=== PATIENT | male | born 1955 | race African-American/Black ===

== ENCOUNTER 2017-08-04 20:53 | Emergency (ER) | payer OTHER ==
[~2017-08-04] VITALS: Ht 177.8 cm; Wt 85.5 kg
[~2017-08-04 20:53] MED LIST: EFAV1TAB4 PO; abilify; atarax; prozac
[2017-08-04 21:01] VITALS: Ht 177.8 cm; Wt 85.5 kg
[2017-08-04] MEDS ORDERED: ONDANSETRON 4 MG INJ IV STA (22:35)
[2017-08-04] MEDS ORDERED: morphine 4 MG/ML VIAL IV STA (22:35)
--- NOTE | 2017-08-04 23:00 | ERD ---
ER Documentation Chief Complaint Chief Complaint mid abd pain w/umbilical distention today HPI This is a very pleasant 61-year-old male comes in midabdominal pain with umbilical distention earlier today. 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 Patient says he knows the symptoms but they have since resolved and is passed both flatus and fecal matter in the time since. He has no abdominal pain currently. Patient wishes to leave at this time. ROS All systems reviewed and are negative except as per history of present illness. Medications Home Meds Reported Medications [atarax] No Conflict Check 10/11/13 [prozac] No Conflict Check 10/11/13 [abilify] No Conflict Check 10/11/13 Woizludjk-Kjxfmmmpbsnii-Xaezvahfe (Atripla) 1 Tab Tablet, 1 TAB PO DAILY 10/11/13 Allergies Allergies: Coded Allergies: No Known Allergy (Unverified , 10/11/13) PMhx/Soc History of Surgery: Yes (kidney removal) Anesthesia Reaction: No Hx Neurological Disorder: No Hx Respiratory Disorders: Yes (pneumonia) Hx Cardiac Disorders: No Hx Psychiatric Problems: Yes (takes psych meds) Hx Alcohol Use: Yes Hx Substance Use: No Hx Tobacco Use: Yes Physical Exam Vitals Vital Signs Date Time Temp Pulse Resp B/P Pulse Ox O2 Delivery O2 Flow Rate FiO2 08/04/17 21:01 98.5 68 20 150/91 99 Physical Exam Const: [] Head: Atraumatic Eyes: Normal Conjunctiva ENT: Normal External Ears, Nose and Mouth. Neck: Full range of motion..~ No meningismus. Resp: Clear to auscultation bilaterally Cardio: Regular rate and rhythm, no murmurs Abd: Soft, non tender, non distended. Normal bowel sounds Skin: No petechiae or rashes Back: No midline or flank tenderness Ext: No cyanosis, or edema Neur: Awake and alert Psych: Normal Mood and Affect Result Diagram: 08/04/170 Results 24 hrs Laboratory Tests Test 08/04/17 22:30 White Blood Count 4.210^3/ul Red Blood Count 4.0510^6/ul Hemoglobin 11.0g/dl Hematocrit 35.1% Mean Corpuscular Volume 86.7fl Mean Corpuscular Hemoglobin 27.2pg Mean Corpuscular Hemoglobin Concent 31.3g/dl Red Cell Distribution Width 17.1% Platelet Count 48103^3/UL Mean Platelet Volume 13.0fl Neutrophils % 67.0% Lymphocytes % 20.7% Monocytes % 9.0% Eosinophils % 2.4% Basophils % 0.7% Nucleated Red Blood Cells % 0.0/100WBC Neutrophils # 2.810^3/ul Lymphocytes # 0.910^3/ul Monocytes # 0.410^3/ul Eosinophils # 0.110^3/ul Basophils # 0.010^3/ul Nucleated Red Blood Cells # 0.010^3/ul Current Medications Medications (Trade) Dose Ordered Sig/Stephan Route PRN Reason Start Time Stop Time Status Last Admin Dose Admin Morphine Sulfate (morphine) 4 mg ONCE STAT IV 08/04/17 22:35 08/04/17 22:37 DC Ondansetron HCl (Zofran Inj) 4 mg ONCE STAT IV 08/04/17 22:35 08/04/17 22:37 DC Procedures/MDM Medical decision-m[age]-year-old male with abdominal pain that is since resolved. Patient at this point does not want any lab work or imaging done which I concur with. Patient has been given strict 8 hour follow-up for abdominal examinations and has been told return sooner for any return of abdominal pain Departure Diagnosis: Primary Impression: Abdominal pain Abdominal location: generalized Qualified Code: R10.84 - Generalized abdominal pain Condition: Stable Patient Instructions: Abdominal Pain CELINA VITALE Aug 04, 2017 23:00
[2017-08-04 23:05] VITALS: BP 138/81; PULSE 77; RESP 18; TEMP 98.3
== END 2017-08-04 23:05 | disposition home or self-care (01) ==
LOC: E/R 20:53
DX: R10.84 Generalized abdominal pain (principal)
CPT/HCPCS: 36415; 81003; 85025; Z7502; Z7610; 99283